=== PATIENT | male | born 1940 | race Caucasian/White ===

== ENCOUNTER 2019-02-08 14:40 | Inpatient (IN) | payer MEDICARE ==
[~2019-02-08] VITALS: Ht 175.3 cm; Wt 109.2 kg
[~2019-02-08 14:40] MED LIST: ALLO300 PO; ASPI-1182 PO; BENZ-51 PO; BETA1TAB20 PO; BUME1TAB17 PO; CARV25 PO; LOSA50TA64 PO; METF-960 PO; RIVA15T PO; ROSU20TA23 PO; TERA5CAP12 PO; TURM500C9 PO; VITAD1000 PO
[2019-02-08] MEDS ORDERED: ACETAMINOPHEN 325 MG TABLET PO PRN (17:30)
[2019-02-08] MEDS ORDERED: IPRATROPIUM BROMIDE 0.5 MG/2.5 ML NEB SOLUTION NEB PRN (17:45)
[2019-02-08] MEDS ORDERED: DEXTROSE 50%-WATER 25 GM/50 ML SYRINGE IVP PRN ×2 (17:45→20:45)
[2019-02-08] MEDS ORDERED: ALBUTEROL SULFATE 2.5 MG/0.5 ML NEB SOLUTION NEB PRN (17:45)
[2019-02-08 17:48] VITALS: BP 148/76
[2019-02-08] MEDS ORDERED: SODIUM CHLORIDE 0.9% 500 ML IV ONE (18:48)
[2019-02-08] MEDS: MetroNIDAZOLE 500 MG/NACL 100 ML IV SCH (18:54)
[2019-02-08 20:24] VITALS: BP 144/90
[2019-02-08] MEDS ORDERED: MAGNESIUM HYDROXIDE SUSPENSION 30 ML UDCUP PO PRN (20:45)
[2019-02-08] MEDS ORDERED: BISACODYL 10 MG RECTAL RECTAL SUPPOSITORY PR PRN (20:45)
[2019-02-08] MEDS ORDERED: ONDANSETRON HCL 4 MG/2 ML VIAL IVP PRN (20:45)
[2019-02-08] MEDS ORDERED: INSULIN GLARGINE,HUM.REC.ANLOG 100 UNITS/ML SQ SCH (21:00)
[2019-02-08] MEDS ORDERED: MEGESTROL ACETATE 400 MG/10 ML SUSPENSION UDCUP PO SCH (21:00)
[2019-02-08] MEDS: INSULIN GLARGINE,HUM.REC.ANLOG 100 UNITS/ML SQ SCH (21:00)
[2019-02-08] MEDS: INSULIN LISPRO 100 UNITS/ML SQ PRN (21:29)
[2019-02-08] MEDS: TAMSULOSIN HCL 0.4 MG CAPSULE PO SCH (21:32)
[2019-02-08] MEDS: APIXABAN 5 MG TABLET PO SCH (21:32)
[2019-02-08] MEDS: CARVEDILOL 12.5 MG TABLET PO SCH (21:32)
[2019-02-08] MEDS: LACTOBACILLUS ACIDOPHILUS/BULGARICUS TABLET PO SCH (21:32)
[2019-02-08] MEDS: ATORVASTATIN CALCIUM 20 MG TABLET PO SCH (21:32)
[2019-02-08] MEDS: NYSTATIN 500,000 UNITS/5 ML SUSPENSION UDCUP PO SCH (21:32)
[2019-02-08] MEDS: CHOLECALCIFEROL (VIT D3) 1,000 UNITS TABLET PO SCH (21:33)
[2019-02-09] VITALS (7 sets, daily range): BP systolic 124–147; BP diastolic 62–82
[2019-02-09] MEDS: MetroNIDAZOLE 500 MG/NACL 100 ML IV SCH ×3 (02:05→18:30)
[2019-02-09 06:24] LABS: BASOPHILS % (AUTO) 0.7 % (0.0-2.0); EOSINOPHILS % (AUTO) 2.3 % (1.0-6.0); HEMATOCRIT 34.1 % (41-53); HEMOGLOBIN 10.8 g/dL (13.5-17.5); LYMPHOCYTES # (AUTO) 0.9 K/uL (1.0-4.8); LYMPHOCYTES % (AUTO) 14.9 % (22.0-44.0); MEAN CORPUSCULAR HEMOGLOBIN 28.4 pg (26.0-34.0); MEAN CORPUSCULAR HGB CONC 31.6 G/dL (31.0-37.0); MEAN CORPUSCULAR VOLUME 90 fL (80-100); MONOCYTES # (AUTO) 0.4 K/uL (0.1-1.0); MONOCYTES % (AUTO) 7.5 % (2.0-9.0); NEUTROPHILS # (AUTO) 4.4 K/uL (1.8-7.7); NEUTROPHILS % (AUTO) 74.6 % (40.0-70.0); PLATELET COUNT (AUTO) 151 K/uL (150-450); RED CELL DISTRIBUTION WIDTH 16.6 % (11.5-14.5)
[2019-02-09 06:56] LABS: HEMOGLOBIN A1C 4.8 % (4.5-6.2)
[2019-02-09 07:00] LABS: BILIRUBIN,TOTAL 0.3 mg/dL (0.1-1.0); CALCIUM, TOTAL 9.7 mg/dL (8.8-10.5); CREATININE 2.78 mg/dL (0.60-1.30); FREE T4 (FREE THYROXINE) 0.95 ng/dL (0.76-1.46); MAGNESIUM 2.2 mg/dL (1.80-2.40); PHOSPHORUS 5.5 mg/dL (2.5-4.9); POTASSIUM 4.5 mmol/L (3.5-5.1); THYROID STIMULATING HORMONE 2.72 uIU/mL (0.36-3.74); TOTAL PROTEIN, SERUM 4.8 g/dL (6.4-8.2)
[2019-02-09 07:03] LABS: LACTIC ACID 0.9 mmol/L (0.4-2.0)
[2019-02-09 07:21] LABS: URIC ACID 11.2 mg/dL (2.6-7.2)
[2019-02-09] MEDS ORDERED: FAMOTIDINE 20 MG TABLET PO SCH (09:00)
[2019-02-09] MEDS: CHOLECALCIFEROL (VIT D3) 1,000 UNITS TABLET PO SCH ×2 (09:03→21:21)
[2019-02-09] MEDS: APIXABAN 5 MG TABLET PO SCH ×2 (09:03→21:22)
[2019-02-09] MEDS: MULTIVITAMINS WITH MINERALS, THERAPEUTIC TABLET PO SCH (09:03)
[2019-02-09] MEDS: CARVEDILOL 12.5 MG TABLET PO SCH ×2 (09:03→21:22)
[2019-02-09] MEDS: LACTOBACILLUS ACIDOPHILUS/BULGARICUS TABLET PO SCH ×3 (09:03→21:21)
[2019-02-09] MEDS: PANTOPRAZOLE SODIUM 40 MG/VIAL IVP SCH (09:03)
[2019-02-09] MEDS: NYSTATIN 500,000 UNITS/5 ML SUSPENSION UDCUP PO SCH ×4 (09:03→21:21)
[2019-02-09] MEDS ORDERED: *CLINICAL-LEVOFLOXACIN IVPB DOSING CLINICAL ONE (09:30)
[2019-02-09] MEDS ORDERED: LEVOFLOXACIN 500 MG/D5% WATER 100 ML IV ONE (10:00)
[2019-02-09] MEDS: VANCOMYCIN HCL 125 MG/2.5 ML SOLUTION ORAL.SYG PO SCH (10:53)
[2019-02-09 11:19] LABS: GLUCOMETER DEV NAME(LOC) 5S.1; GLUCOSE,POINT OF CARE 91 MG/DL (70-110)
[2019-02-09 11:19] LABS: GLUCOMETER DEV NAME(LOC) 5N.1; GLUCOSE,POINT OF CARE 83 MG/DL (70-110)
[2019-02-09 14:49] LABS: GLUCOMETER DEV NAME(LOC) 5N.1; GLUCOSE,POINT OF CARE 128 MG/DL (70-110)
[2019-02-09] MEDS: ATORVASTATIN CALCIUM 20 MG TABLET PO SCH (21:21)
[2019-02-09] MEDS: MELATONIN 5 MG TABLET PO PRN (21:21)
[2019-02-09] MEDS: TAMSULOSIN HCL 0.4 MG CAPSULE PO SCH (21:22)
[2019-02-09] MEDS: INSULIN LISPRO 100 UNITS/ML SQ PRN (21:28)
[2019-02-09] MEDS: INSULIN GLARGINE,HUM.REC.ANLOG 100 UNITS/ML SQ SCH (21:29)
[2019-02-10] MEDS: MetroNIDAZOLE 500 MG/NACL 100 ML IV SCH ×3 (02:44→18:34)
[2019-02-10 05:22] VITALS: BP 137/65
[2019-02-10 05:54] LABS: GLUCOMETER DEV NAME(LOC) 5S.1; GLUCOSE,POINT OF CARE 88 MG/DL (70-110)
[2019-02-10 05:57] LABS: BASOPHILS % (AUTO) 0.9 % (0.0-2.0); EOSINOPHILS % (AUTO) 2.3 % (1.0-6.0); HEMATOCRIT 34.4 % (41-53); HEMOGLOBIN 10.9 g/dL (13.5-17.5); MEAN CORPUSCULAR HEMOGLOBIN 28.6 pg (26.0-34.0); MEAN CORPUSCULAR HGB CONC 31.8 G/dL (31.0-37.0); MEAN CORPUSCULAR VOLUME 90 fL (80-100); MONOCYTES # (AUTO) 0.5 K/uL (0.1-1.0); MONOCYTES % (AUTO) 8.3 % (2.0-9.0); NEUTROPHILS # (AUTO) 4.1 K/uL (1.8-7.7); NEUTROPHILS % (AUTO) 71.5 % (40.0-70.0); PLATELET COUNT (AUTO) 178 K/uL (150-450); RED BLOOD CELL COUNT(AUTO) 3.83 MIL/uL (4.50-5.90); RED CELL DISTRIBUTION WIDTH 16.6 % (11.5-14.5)
[2019-02-10 07:13] LABS: CREATININE 2.94 mg/dL (0.60-1.30); POTASSIUM 5.1 mmol/L (3.5-5.1)
[2019-02-10 07:14] LABS: ALBUMIN 1.9 g/dL (3.4-5.0); BILIRUBIN,TOTAL 0.3 mg/dL (0.1-1.0); CALCIUM, TOTAL 9.8 mg/dL (8.8-10.5); MAGNESIUM 2.1 mg/dL (1.80-2.40); PHOSPHORUS 5.5 mg/dL (2.5-4.9); TOTAL PROTEIN, SERUM 5.3 g/dL (6.4-8.2)
[2019-02-10 07:17] VITALS: BP 145/72
[2019-02-10 08:04] LABS: GLUCOMETER DEV NAME(LOC) 5N.1; GLUCOSE,POINT OF CARE 90 MG/DL (70-110)
[2019-02-10 08:04] LABS: GLUCOMETER DEV NAME(LOC) 5N.1; GLUCOSE,POINT OF CARE 141 MG/DL (70-110)
[2019-02-10] MEDS: CARVEDILOL 12.5 MG TABLET PO SCH ×2 (09:04→20:52)
[2019-02-10] MEDS: PANTOPRAZOLE SODIUM 40 MG/VIAL IVP SCH (09:04)
[2019-02-10] MEDS: MULTIVITAMINS WITH MINERALS, THERAPEUTIC TABLET PO SCH (09:04)
[2019-02-10] MEDS: APIXABAN 5 MG TABLET PO SCH ×2 (09:04→20:52)
[2019-02-10] MEDS: LACTOBACILLUS ACIDOPHILUS/BULGARICUS TABLET PO SCH ×3 (09:04→20:52)
[2019-02-10] MEDS: NYSTATIN 500,000 UNITS/5 ML SUSPENSION UDCUP PO SCH ×4 (09:04→20:53)
[2019-02-10] MEDS: CHOLECALCIFEROL (VIT D3) 1,000 UNITS TABLET PO SCH ×2 (09:04→20:52)
[2019-02-10] MEDS: DEXTROSE 5%-WATER 1,000 ML IV SCH (09:20)
[2019-02-10] MEDS ORDERED: LEVOFLOXACIN 250 MG/D5% WATER 50 ML IV SCH (10:00)
[2019-02-10 11:04] VITALS: BP 128/64
[2019-02-10 13:09] LABS: GLUCOMETER DEV NAME(LOC) 5S.1; GLUCOSE,POINT OF CARE 122 MG/DL (70-110)
[2019-02-10 15:29] VITALS: BP 135/72
[2019-02-10] MEDS: AZTREONAM 1 GM in DEXTROSE 5%-WATER 50 ML IV SCH ×2 (17:17→23:07)
[2019-02-10 19:38] VITALS: BP 129/74
[2019-02-10] MEDS: TAMSULOSIN HCL 0.4 MG CAPSULE PO SCH (20:52)
[2019-02-10] MEDS: MELATONIN 5 MG TABLET PO PRN (20:52)
[2019-02-10] MEDS: INSULIN LISPRO 100 UNITS/ML SQ PRN (20:59)
[2019-02-10] MEDS: INSULIN GLARGINE,HUM.REC.ANLOG 100 UNITS/ML SQ SCH (21:00)
[2019-02-10] MEDS: ATORVASTATIN CALCIUM 20 MG TABLET PO SCH (21:02)
[2019-02-10 21:29] LABS: GLUCOMETER DEV NAME(LOC) 5S.1; GLUCOSE,POINT OF CARE 94 MG/DL (70-110)
[2019-02-10 21:29] LABS: GLUCOMETER DEV NAME(LOC) 5N.1; GLUCOSE,POINT OF CARE 142 MG/DL (70-110)
[2019-02-11] VITALS (7 sets, daily range): BP systolic 133–162; BP diastolic 59–91
[2019-02-11] MEDS: MetroNIDAZOLE 500 MG/NACL 100 ML IV SCH ×3 (01:12→19:06)
[2019-02-11] MEDS: DEXTROSE 5%-WATER 1,000 ML IV SCH (04:14)
[2019-02-11 06:03] LABS: BASOPHILS % (AUTO) 0.7 % (0.0-2.0); EOSINOPHILS % (AUTO) 2.3 % (1.0-6.0); HEMATOCRIT 34.6 % (41-53); LYMPHOCYTES # (AUTO) 1.1 K/uL (1.0-4.8); LYMPHOCYTES % (AUTO) 16.5 % (22.0-44.0); MEAN CORPUSCULAR HEMOGLOBIN 28.2 pg (26.0-34.0); MEAN CORPUSCULAR HGB CONC 31.8 G/dL (31.0-37.0); MEAN CORPUSCULAR VOLUME 89 fL (80-100); MONOCYTES # (AUTO) 0.5 K/uL (0.1-1.0); MONOCYTES % (AUTO) 7.2 % (2.0-9.0); NEUTROPHILS # (AUTO) 4.7 K/uL (1.8-7.7); NEUTROPHILS % (AUTO) 73.3 % (40.0-70.0); PLATELET COUNT (AUTO) 176 K/uL (150-450); RED CELL DISTRIBUTION WIDTH 16.4 % (11.5-14.5)
[2019-02-11 06:24] LABS: ALBUMIN 1.9 g/dL (3.4-5.0); BILIRUBIN,TOTAL 0.3 mg/dL (0.1-1.0); CALCIUM, TOTAL 9.4 mg/dL (8.8-10.5); CREATININE 2.72 mg/dL (0.60-1.30); PHOSPHORUS 5.6 mg/dL (2.5-4.9); POTASSIUM 4.2 mmol/L (3.5-5.1); TOTAL PROTEIN, SERUM 5.3 g/dL (6.4-8.2)
[2019-02-11] MEDS: AZTREONAM 1 GM in DEXTROSE 5%-WATER 50 ML IV SCH ×3 (06:26→23:06)
[2019-02-11] MEDS: CHOLECALCIFEROL (VIT D3) 1,000 UNITS TABLET PO SCH ×2 (08:57→20:33)
[2019-02-11] MEDS: NYSTATIN 500,000 UNITS/5 ML SUSPENSION UDCUP PO SCH ×4 (08:57→20:33)
[2019-02-11] MEDS: APIXABAN 5 MG TABLET PO SCH ×2 (08:57→20:33)
[2019-02-11] MEDS: CARVEDILOL 12.5 MG TABLET PO SCH ×2 (08:57→20:33)
[2019-02-11] MEDS: LACTOBACILLUS ACIDOPHILUS/BULGARICUS TABLET PO SCH ×3 (08:57→20:33)
[2019-02-11] MEDS: MULTIVITAMINS WITH MINERALS, THERAPEUTIC TABLET PO SCH (08:57)
[2019-02-11] MEDS: PANTOPRAZOLE SODIUM 40 MG/VIAL IVP SCH (08:57)
[2019-02-11] MEDS: VANCOMYCIN HCL 125 MG/2.5 ML SOLUTION ORAL.SYG PO SCH (09:23)
[2019-02-11 10:55] LABS: GLUCOMETER DEV NAME(LOC) 5N.1; GLUCOSE,POINT OF CARE 91 MG/DL (70-110)
[2019-02-11] MEDS ORDERED: BUMETANIDE 0.25 MG/ML 4 ML VIAL IVP ONE (11:15)
[2019-02-11 12:34] LABS: GLUCOMETER DEV NAME(LOC) 5N.1; GLUCOSE,POINT OF CARE 120 MG/DL (70-110)
[2019-02-11] MEDS: ATORVASTATIN CALCIUM 20 MG TABLET PO SCH (20:33)
[2019-02-11] MEDS: MELATONIN 5 MG TABLET PO PRN (20:33)
[2019-02-11] MEDS: INSULIN GLARGINE,HUM.REC.ANLOG 100 UNITS/ML SQ SCH (20:34)
[2019-02-11] MEDS: TAMSULOSIN HCL 0.4 MG CAPSULE PO SCH (20:34)
[2019-02-12] MEDS: DEXTROSE 5%-WATER 1,000 ML IV SCH (00:52)
[2019-02-12] MEDS: MetroNIDAZOLE 500 MG/NACL 100 ML IV SCH ×3 (01:46→17:41)
[2019-02-12 02:19] LABS: GLUCOMETER DEV NAME(LOC) 5N.1; GLUCOSE,POINT OF CARE 110 MG/DL (70-110)
[2019-02-12 02:19] LABS: GLUCOMETER DEV NAME(LOC) 5N.1; GLUCOSE,POINT OF CARE 104 MG/DL (70-110)
[2019-02-12 05:14] VITALS: BP 155/78
[2019-02-12] MEDS: AZTREONAM 1 GM in DEXTROSE 5%-WATER 50 ML IV SCH ×3 (06:37→22:48)
[2019-02-12 07:37] VITALS: BP 134/70
[2019-02-12] MEDS: CHOLECALCIFEROL (VIT D3) 1,000 UNITS TABLET PO SCH ×2 (08:08→20:23)
[2019-02-12] MEDS: PANTOPRAZOLE SODIUM 40 MG/VIAL IVP SCH (08:09)
[2019-02-12] MEDS: CARVEDILOL 12.5 MG TABLET PO SCH ×2 (08:09→20:23)
[2019-02-12] MEDS: APIXABAN 5 MG TABLET PO SCH ×2 (08:09→20:23)
[2019-02-12] MEDS: NYSTATIN 500,000 UNITS/5 ML SUSPENSION UDCUP PO SCH ×4 (08:09→20:22)
[2019-02-12] MEDS: LACTOBACILLUS ACIDOPHILUS/BULGARICUS TABLET PO SCH ×3 (08:09→20:23)
[2019-02-12] MEDS: MULTIVITAMINS WITH MINERALS, THERAPEUTIC TABLET PO SCH (08:09)
[2019-02-12 08:44] LABS: GLUCOMETER DEV NAME(LOC) 5N.1; GLUCOSE,POINT OF CARE 85 MG/DL (70-110)
[2019-02-12 10:27] LABS: CALCIUM, TOTAL 9.6 mg/dL (8.8-10.5); CREATININE 3.06 mg/dL (0.60-1.30); MAGNESIUM 1.9 mg/dL (1.80-2.40); PHOSPHORUS 5.9 mg/dL (2.5-4.9); POTASSIUM 4.4 mmol/L (3.5-5.1)
[2019-02-12] MEDS ORDERED: DEXTROSE 5%-WATER 1,000 ML IV SCH (11:00)
[2019-02-12 11:18] VITALS: BP 119/60
[2019-02-12 16:09] VITALS: BP 101/64
[2019-02-12] MEDS: IPRATROPIUM BROMIDE 0.5 MG/2.5 ML NEB SOLUTION NEB PRN (16:39)
[2019-02-12] MEDS: ALBUTEROL SULFATE 2.5 MG/0.5 ML NEB SOLUTION NEB PRN (16:39)
[2019-02-12] MEDS: INSULIN LISPRO 100 UNITS/ML SQ PRN (17:52)
[2019-02-12 18:14] LABS: GLUCOMETER DEV NAME(LOC) 5N.1; GLUCOSE,POINT OF CARE 111 MG/DL (70-110)
[2019-02-12 18:14] LABS: GLUCOMETER DEV NAME(LOC) 5N.1; GLUCOSE,POINT OF CARE 161 MG/DL (70-110)
[2019-02-12 19:28] VITALS: BP 132/63
[2019-02-12] MEDS: MELATONIN 5 MG TABLET PO PRN (20:23)
[2019-02-12] MEDS: ATORVASTATIN CALCIUM 20 MG TABLET PO SCH (20:23)
[2019-02-12] MEDS: TAMSULOSIN HCL 0.4 MG CAPSULE PO SCH (20:23)
[2019-02-12] MEDS: INSULIN GLARGINE,HUM.REC.ANLOG 100 UNITS/ML SQ SCH (20:23)
[2019-02-12 21:29] LABS: GLUCOMETER DEV NAME(LOC) 5N.1; GLUCOSE,POINT OF CARE 139 MG/DL (70-110)
[2019-02-13] VITALS: BP 148/80
[2019-02-13 00:19] VITALS: BP 94/61
[2019-02-13] MEDS: MetroNIDAZOLE 500 MG/NACL 100 ML IV SCH ×3 (01:48→18:10)
[2019-02-13 04:42] VITALS: BP 141/89
[2019-02-13] MEDS: AZTREONAM 1 GM in DEXTROSE 5%-WATER 50 ML IV SCH ×3 (06:20→22:34)
[2019-02-13 06:55] LABS: BASOPHILS % (AUTO) 0.4 % (0.0-2.0); EOSINOPHILS % (AUTO) 1.6 % (1.0-6.0); HEMATOCRIT 33.9 % (41-53); HEMOGLOBIN 10.7 g/dL (13.5-17.5); LYMPHOCYTES # (AUTO) 1.2 K/uL (1.0-4.8); LYMPHOCYTES % (AUTO) 13.5 % (22.0-44.0); MEAN CORPUSCULAR HEMOGLOBIN 28.5 pg (26.0-34.0); MEAN CORPUSCULAR HGB CONC 31.7 G/dL (31.0-37.0); MEAN CORPUSCULAR VOLUME 90 fL (80-100); MONOCYTES # (AUTO) 0.4 K/uL (0.1-1.0); NEUTROPHILS # (AUTO) 7.1 K/uL (1.8-7.7); NEUTROPHILS % (AUTO) 79.5 % (40.0-70.0); PLATELET COUNT (AUTO) 197 K/uL (150-450); RED BLOOD CELL COUNT(AUTO) 3.76 MIL/uL (4.50-5.90); RED CELL DISTRIBUTION WIDTH 16.9 % (11.5-14.5)
[2019-02-13 07:28] LABS: CALCIUM, TOTAL 9.4 mg/dL (8.8-10.5); CREATININE 3.35 mg/dL (0.60-1.30); PHOSPHORUS 4.8 mg/dL (2.5-4.9); POTASSIUM 4.2 mmol/L (3.5-5.1)
[2019-02-13 07:39] LABS: GLUCOMETER DEV NAME(LOC) 5S.1; GLUCOSE,POINT OF CARE 89 MG/DL (70-110)
[2019-02-13 07:48] VITALS: BP 137/68
[2019-02-13] MEDS: SODIUM CHLORIDE 0.45% 1,000 ML IV SCH (09:03)
[2019-02-13] MEDS: CHOLECALCIFEROL (VIT D3) 1,000 UNITS TABLET PO SCH ×2 (09:04→21:44)
[2019-02-13] MEDS: CARVEDILOL 12.5 MG TABLET PO SCH ×2 (09:04→21:45)
[2019-02-13] MEDS: APIXABAN 5 MG TABLET PO SCH (09:04)
[2019-02-13] MEDS: LACTOBACILLUS ACIDOPHILUS/BULGARICUS TABLET PO SCH ×3 (09:04→21:47)
[2019-02-13] MEDS: NYSTATIN 500,000 UNITS/5 ML SUSPENSION UDCUP PO SCH ×4 (09:04→21:44)
[2019-02-13] MEDS: PANTOPRAZOLE SODIUM 40 MG/VIAL IVP SCH (09:04)
[2019-02-13] MEDS: MULTIVITAMINS WITH MINERALS, THERAPEUTIC TABLET PO SCH (09:04)
[2019-02-13] MEDS: VANCOMYCIN HCL 125 MG/2.5 ML SOLUTION ORAL.SYG PO SCH ×3 (09:05→23:33)
[2019-02-13 13:09] LABS: GLUCOMETER DEV NAME(LOC) 5N.1; GLUCOSE,POINT OF CARE 114 MG/DL (70-110)
[2019-02-13 16:44] VITALS: BP 131/61
[2019-02-13 17:44] LABS: CREATININE 3.64 mg/dL (0.60-1.30)
[2019-02-13 20:10] VITALS: BP 146/70
[2019-02-13] MEDS ORDERED: APIXABAN 5 MG TABLET PO SCH (21:00)
[2019-02-13] MEDS: APIXABAN 2.5 MG TABLET PO SCH (21:44)
[2019-02-13] MEDS: TAMSULOSIN HCL 0.4 MG CAPSULE PO SCH (21:45)
[2019-02-13] MEDS: ATORVASTATIN CALCIUM 20 MG TABLET PO SCH (21:45)
[2019-02-13 23:53] LABS: GLUCOMETER DEV NAME(LOC) 5S.1; GLUCOSE,POINT OF CARE 140 MG/DL (70-110)
[2019-02-13 23:54] LABS: GLUCOMETER DEV NAME(LOC) 5S.1; GLUCOSE,POINT OF CARE 118 MG/DL (70-110)
[2019-02-14] MEDS: MetroNIDAZOLE 500 MG/NACL 100 ML IV SCH ×3 (02:50→18:21)
[2019-02-14 04:35] VITALS: BP 143/70
[2019-02-14 06:34] LABS: GLUCOMETER DEV NAME(LOC) 5N.1; GLUCOSE,POINT OF CARE 86 MG/DL (70-110)
[2019-02-14 06:42] LABS: CALCIUM, TOTAL 9.6 mg/dL (8.8-10.5); CREATININE 3.64 mg/dL (0.60-1.30); PHOSPHORUS 4.8 mg/dL (2.5-4.9); POTASSIUM 4.3 mmol/L (3.5-5.1)
[2019-02-14] MEDS: VANCOMYCIN HCL 125 MG/2.5 ML SOLUTION ORAL.SYG PO SCH ×3 (07:07→18:21)
[2019-02-14] MEDS: AZTREONAM 1 GM in DEXTROSE 5%-WATER 50 ML IV SCH ×3 (07:09→23:54)
[2019-02-14 07:39] VITALS: BP 128/75
[2019-02-14] MEDS: PANTOPRAZOLE SODIUM 40 MG/VIAL IVP SCH (09:00)
[2019-02-14] MEDS: SODIUM CHLORIDE 0.45% 1,000 ML IV SCH ×2 (10:49→23:54)
[2019-02-14] MEDS: CARVEDILOL 12.5 MG TABLET PO SCH ×2 (10:49→20:17)
[2019-02-14] MEDS: NYSTATIN 500,000 UNITS/5 ML SUSPENSION UDCUP PO SCH ×4 (10:50→20:17)
[2019-02-14] MEDS: APIXABAN 2.5 MG TABLET PO SCH ×2 (10:50→20:17)
[2019-02-14] MEDS: LACTOBACILLUS ACIDOPHILUS/BULGARICUS TABLET PO SCH ×3 (10:50→20:17)
[2019-02-14] MEDS: MULTIVITAMINS WITH MINERALS, THERAPEUTIC TABLET PO SCH (10:50)
[2019-02-14] MEDS: CHOLECALCIFEROL (VIT D3) 1,000 UNITS TABLET PO SCH ×2 (10:51→20:17)
[2019-02-14 11:59] VITALS: BP 120/60
[2019-02-14 15:34] LABS: GLUCOMETER DEV NAME(LOC) 5S.1; GLUCOSE,POINT OF CARE 134 MG/DL (70-110)
[2019-02-14 15:48] VITALS: BP 122/67
[2019-02-14 17:50] LABS: CREATININE 3.71 mg/dL (0.60-1.30)
[2019-02-14 20:15] VITALS: BP 136/56
[2019-02-14] MEDS: TAMSULOSIN HCL 0.4 MG CAPSULE PO SCH (20:17)
[2019-02-14] MEDS: ATORVASTATIN CALCIUM 20 MG TABLET PO SCH (20:17)
[2019-02-14 23:46] VITALS: BP 126/71
[2019-02-15] MEDS: VANCOMYCIN HCL 125 MG/2.5 ML SOLUTION ORAL.SYG PO SCH ×4 (00:05→17:18)
[2019-02-15] MEDS: MetroNIDAZOLE 500 MG/NACL 100 ML IV SCH ×3 (02:04→17:17)
[2019-02-15 04:36] VITALS: BP 145/81
[2019-02-15 05:10] LABS: GLUCOMETER DEV NAME(LOC) 5N.1; GLUCOSE,POINT OF CARE 112 MG/DL (70-110)
[2019-02-15 05:10] LABS: GLUCOMETER DEV NAME(LOC) 5N.1; GLUCOSE,POINT OF CARE 108 MG/DL (70-110)
[2019-02-15] MEDS: AZTREONAM 1 GM in DEXTROSE 5%-WATER 50 ML IV SCH ×2 (06:03→14:17)
[2019-02-15 06:10] LABS: BASOPHILS % (AUTO) 0.4 % (0.0-2.0); HEMATOCRIT 35.9 % (41-53); HEMOGLOBIN 11.3 g/dL (13.5-17.5); LYMPHOCYTES # (AUTO) 1.3 K/uL (1.0-4.8); LYMPHOCYTES % (AUTO) 11.7 % (22.0-44.0); MEAN CORPUSCULAR HEMOGLOBIN 28.1 pg (26.0-34.0); MEAN CORPUSCULAR HGB CONC 31.6 G/dL (31.0-37.0); MEAN CORPUSCULAR VOLUME 89 fL (80-100); MONOCYTES # (AUTO) 0.5 K/uL (0.1-1.0); MONOCYTES % (AUTO) 4.3 % (2.0-9.0); NEUTROPHILS # (AUTO) 9.4 K/uL (1.8-7.7); NEUTROPHILS % (AUTO) 82.6 % (40.0-70.0); PLATELET COUNT (AUTO) 210 K/uL (150-450); RED BLOOD CELL COUNT(AUTO) 4.03 MIL/uL (4.50-5.90); RED CELL DISTRIBUTION WIDTH 16.6 % (11.5-14.5)
[2019-02-15 06:30] LABS: GLUCOMETER DEV NAME(LOC) 5S.1; GLUCOSE,POINT OF CARE 88 MG/DL (70-110)
[2019-02-15 07:05] LABS: ALBUMIN 1.8 g/dL (3.4-5.0); BILIRUBIN,TOTAL 0.3 mg/dL (0.1-1.0); CALCIUM, TOTAL 9.7 mg/dL (8.8-10.5); CREATININE 3.8 mg/dL (0.60-1.30); MAGNESIUM 2.1 mg/dL (1.80-2.40); PHOSPHORUS 5.6 mg/dL (2.5-4.9); POTASSIUM 4.5 mmol/L (3.5-5.1); TOTAL PROTEIN, SERUM 5.4 g/dL (6.4-8.2)
[2019-02-15 07:26] VITALS: BP 129/67
[2019-02-15] MEDS: PANTOPRAZOLE SODIUM 40 MG/VIAL IVP SCH (09:14)
[2019-02-15] MEDS: LACTOBACILLUS ACIDOPHILUS/BULGARICUS TABLET PO SCH ×3 (09:14→20:28)
[2019-02-15] MEDS: MULTIVITAMINS WITH MINERALS, THERAPEUTIC TABLET PO SCH (09:14)
[2019-02-15] MEDS: CARVEDILOL 12.5 MG TABLET PO SCH ×2 (09:14→20:28)
[2019-02-15] MEDS: CHOLECALCIFEROL (VIT D3) 1,000 UNITS TABLET PO SCH ×2 (09:14→20:28)
[2019-02-15] MEDS: APIXABAN 2.5 MG TABLET PO SCH ×2 (09:14→20:28)
[2019-02-15] MEDS: NYSTATIN 500,000 UNITS/5 ML SUSPENSION UDCUP PO SCH ×4 (09:15→20:28)
[2019-02-15 11:25] VITALS: BP 114/58
[2019-02-15 12:20] LABS: GLUCOMETER DEV NAME(LOC) 5N.2; GLUCOSE,POINT OF CARE 109 MG/DL (70-110)
[2019-02-15] MEDS: ALBUTEROL SULFATE 2.5 MG/0.5 ML NEB SOLUTION NEB PRN (12:25)
[2019-02-15] MEDS: IPRATROPIUM BROMIDE 0.5 MG/2.5 ML NEB SOLUTION NEB PRN (12:25)
[2019-02-15 15:14] VITALS: BP 127/66
[2019-02-15 18:15] LABS: CREATININE 4.12 mg/dL (0.60-1.30)
[2019-02-15 19:06] LABS: GLUCOMETER DEV NAME(LOC) 5N.2; GLUCOSE,POINT OF CARE 101 MG/DL (70-110)
[2019-02-15] MEDS: ATORVASTATIN CALCIUM 20 MG TABLET PO SCH (20:27)
[2019-02-15] MEDS: TAMSULOSIN HCL 0.4 MG CAPSULE PO SCH (20:28)
[2019-02-15 20:34] VITALS: BP 130/69
[2019-02-16] MEDS: AZTREONAM 1 GM in DEXTROSE 5%-WATER 50 ML IV SCH ×4 (00:01→22:19)
[2019-02-16 00:15] VITALS: BP 99/47
[2019-02-16 00:41] LABS: GLUCOMETER DEV NAME(LOC) 5N.1; GLUCOSE,POINT OF CARE 123 MG/DL (70-110)
[2019-02-16] MEDS: MetroNIDAZOLE 500 MG/NACL 100 ML IV SCH ×3 (02:36→18:35)
[2019-02-16 05:09] VITALS: BP 126/76
[2019-02-16] MEDS ORDERED: SODIUM CHLORIDE 0.9% 100 ML ONE (05:27)
[2019-02-16] MEDS: VANCOMYCIN HCL 125 MG/2.5 ML SOLUTION ORAL.SYG PO SCH ×5 (06:08→23:18)
[2019-02-16 06:35] LABS: CALCIUM, TOTAL 9.9 mg/dL (8.8-10.5); CREATININE 4.32 mg/dL (0.60-1.30); MAGNESIUM 2.1 mg/dL (1.80-2.40); PHOSPHORUS 6.1 mg/dL (2.5-4.9); POTASSIUM 4.6 mmol/L (3.5-5.1)
[2019-02-16 07:20] LABS: GLUCOMETER DEV NAME(LOC) 5N.1; GLUCOSE,POINT OF CARE 83 MG/DL (70-110)
[2019-02-16 08:38] VITALS: BP 136/72
[2019-02-16] MEDS ORDERED: HEPARIN SODIUM,PORCINE 1,000 UNITS/ML 10 ML VIAL ONE (08:42)
[2019-02-16] MEDS ORDERED: LIDOCAINE 1%/EPI 1:200,000/PF 10 ML VIAL ONE (08:42)
[2019-02-16] MEDS ORDERED: HEPARIN SODIUM 1000 UNITS/NS 500 ML ONE (08:43)
[2019-02-16] MEDS: APIXABAN 2.5 MG TABLET PO SCH ×2 (09:04→23:05)
[2019-02-16] MEDS: NYSTATIN 500,000 UNITS/5 ML SUSPENSION UDCUP PO SCH ×4 (09:05→23:05)
[2019-02-16] MEDS: CHOLECALCIFEROL (VIT D3) 1,000 UNITS TABLET PO SCH ×2 (09:05→21:49)
[2019-02-16] MEDS: LACTOBACILLUS ACIDOPHILUS/BULGARICUS TABLET PO SCH ×3 (09:07→23:06)
[2019-02-16] MEDS: MULTIVITAMINS WITH MINERALS, THERAPEUTIC TABLET PO SCH (09:07)
[2019-02-16] MEDS: CARVEDILOL 12.5 MG TABLET PO SCH ×2 (09:08→21:50)
[2019-02-16] MEDS: PANTOPRAZOLE SODIUM 40 MG/VIAL IVP SCH (10:00)
[2019-02-16 10:12] LABS: INR 1.2 (0.9-1.1)
[2019-02-16] MEDS ORDERED: FentaNYL CITRATE-PF 100 MCG/2 ML VIAL ONE (12:36)
[2019-02-16] MEDS ORDERED: MIDAZOLAM HCL 2 MG/2 ML VIAL ONE (12:37)
[2019-02-16] MEDS ORDERED: FentaNYL CITRATE-PF 100 MCG/2 ML VIAL IVP ONE (12:43)
[2019-02-16] MEDS ORDERED: MIDAZOLAM HCL 2 MG/2 ML VIAL IVP ONE (12:43)
[2019-02-16 13:04] VITALS: BP 134/69
[2019-02-16 16:26] VITALS: BP 137/83
[2019-02-16 17:20] LABS: GLUCOSE,POINT OF CARE 95 MG/DL (70-110)
[2019-02-16 17:20] LABS: GLUCOMETER DEV NAME(LOC) 5S.1; GLUCOSE,POINT OF CARE 107 MG/DL (70-110)
[2019-02-16 19:49] LABS: ABG METHEMOGLOBIN 0.3 % (0.0-1.5); SOURCE, BLOOD GAS ARTERIAL
[2019-02-16 20:00] VITALS: BP 130/82
[2019-02-16 20:00] LABS: ABG A-A DIFF O2 149.1 mmHg (10-20.0); ABG BASE EXCESS 2.4 mmol/L (-2.0-3.0); ABG CARBOXYHEMOGLOBIN 0.4 % (0.0-1.5); ABG HCO3 25.9 mmol/L (22.0-26.0); ABG OXYGEN CONTENT 16.1 mL/dL (15.0-23.0); ABG OXYGEN SATURATION 95.6 % (95.0-98.0); ABG OXYHEMOGLOBIN 94.9 % (94.0-100.0); ABG PCO2 51 mmHg (35-45); ABG PH 7.356 (7.35-7.450); PO2, ARTERIAL BG 77.8 mmHg (75.0-83.0)
[2019-02-16 20:01] LABS: O2 DEVICE,BLOOD GAS BIPAP (ROOM AIR); SITE, BLOOD GAS RT RADIAL; SPONTANEOUS VT, BG 459 ml
[2019-02-16 21:40] LABS: GLUCOSE,POINT OF CARE 87 MG/DL (70-110)
[2019-02-16] MEDS: TAMSULOSIN HCL 0.4 MG CAPSULE PO SCH (21:49)
[2019-02-16] MEDS: ATORVASTATIN CALCIUM 20 MG TABLET PO SCH (21:50)
[2019-02-17] VITALS (8 sets, daily range): BP systolic 103–140; BP diastolic 49–77
[2019-02-17] MEDS: MetroNIDAZOLE 500 MG/NACL 100 ML IV SCH ×3 (01:33→16:57)
[2019-02-17 04:56] LABS: BASOPHILS % (AUTO) 0.7 % (0.0-2.0); EOSINOPHILS % (AUTO) 1.1 % (1.0-6.0); HEMATOCRIT 33.5 % (41-53); HEMOGLOBIN 10.7 g/dL (13.5-17.5); LYMPHOCYTES # (AUTO) 0.9 K/uL (1.0-4.8); LYMPHOCYTES % (AUTO) 10.2 % (22.0-44.0); MEAN CORPUSCULAR HEMOGLOBIN 28.7 pg (26.0-34.0); MEAN CORPUSCULAR HGB CONC 32.1 G/dL (31.0-37.0); MEAN CORPUSCULAR VOLUME 89 fL (80-100); MONOCYTES # (AUTO) 0.5 K/uL (0.1-1.0); MONOCYTES % (AUTO) 5.7 % (2.0-9.0); NEUTROPHILS # (AUTO) 7.5 K/uL (1.8-7.7); NEUTROPHILS % (AUTO) 82.3 % (40.0-70.0); PLATELET COUNT (AUTO) 227 K/uL (150-450); RED BLOOD CELL COUNT(AUTO) 3.75 MIL/uL (4.50-5.90); RED CELL DISTRIBUTION WIDTH 16.6 % (11.5-14.5)
[2019-02-17 05:31] LABS: ALBUMIN 1.7 g/dL (3.4-5.0); BILIRUBIN,TOTAL 0.3 mg/dL (0.1-1.0); CALCIUM, TOTAL 9.4 mg/dL (8.8-10.5); CREATININE 3.98 mg/dL (0.60-1.30); MAGNESIUM 1.9 mg/dL (1.80-2.40); PHOSPHORUS 5.6 mg/dL (2.5-4.9); POTASSIUM 5.1 mmol/L (3.5-5.1); TOTAL PROTEIN, SERUM 5.3 g/dL (6.4-8.2)
[2019-02-17] MEDS: VANCOMYCIN HCL 125 MG/2.5 ML SOLUTION ORAL.SYG PO SCH ×4 (05:33→23:09)
[2019-02-17] MEDS: INSULIN LISPRO 100 UNITS/ML SQ PRN (05:34)
[2019-02-17] MEDS: AZTREONAM 1 GM in DEXTROSE 5%-WATER 50 ML IV SCH ×2 (06:22→15:03)
[2019-02-17] MEDS ORDERED: SODIUM CHLORIDE 0.9% 100 ML ONE (06:37)
[2019-02-17 06:39] LABS: GLUCOSE,POINT OF CARE 99 MG/DL (70-110)
[2019-02-17] MEDS: MULTIVITAMINS WITH MINERALS, THERAPEUTIC TABLET PO SCH (08:37)
[2019-02-17] MEDS: NYSTATIN 500,000 UNITS/5 ML SUSPENSION UDCUP PO SCH ×4 (08:37→21:48)
[2019-02-17] MEDS: PANTOPRAZOLE SODIUM 40 MG/VIAL IVP SCH (08:37)
[2019-02-17] MEDS: APIXABAN 2.5 MG TABLET PO SCH ×2 (08:38→21:46)
[2019-02-17] MEDS: LACTOBACILLUS ACIDOPHILUS/BULGARICUS TABLET PO SCH ×3 (08:38→21:48)
[2019-02-17] MEDS: CHOLECALCIFEROL (VIT D3) 1,000 UNITS TABLET PO SCH ×2 (08:38→21:46)
[2019-02-17] MEDS: CARVEDILOL 12.5 MG TABLET PO SCH ×2 (08:38→21:46)
[2019-02-17] MEDS ORDERED: HEPARIN SODIUM,PORCINE 1,000 UNITS/ML VIAL IVP ONE (16:56)
[2019-02-17 20:04] LABS: GLUCOSE,POINT OF CARE 127 MG/DL (70-110)
[2019-02-17 20:04] LABS: GLUCOSE,POINT OF CARE 116 MG/DL (70-110)
[2019-02-17] MEDS: FUROSEMIDE 40 MG/4 ML VIAL IVP SCH (21:46)
[2019-02-17] MEDS: ATORVASTATIN CALCIUM 20 MG TABLET PO SCH (21:46)
[2019-02-17] MEDS: TAMSULOSIN HCL 0.4 MG CAPSULE PO SCH (21:46)
[2019-02-18 00:25] VITALS: BP 112/62
[2019-02-18 04:25] VITALS: BP 114/69
[2019-02-18] MEDS: VANCOMYCIN HCL 125 MG/2.5 ML SOLUTION ORAL.SYG PO SCH ×3 (05:12→18:00)
[2019-02-18 05:45] LABS: GLUCOMETER DEV NAME(LOC) 5N.1; GLUCOSE,POINT OF CARE 127 MG/DL (70-110)
[2019-02-18 06:23] LABS: BASOPHILS % (AUTO) 0.6 % (0.0-2.0); HEMOGLOBIN 10.1 g/dL (13.5-17.5); LYMPHOCYTES % (AUTO) 11.8 % (22.0-44.0); MEAN CORPUSCULAR HEMOGLOBIN 28.7 pg (26.0-34.0); MEAN CORPUSCULAR HGB CONC 31.7 G/dL (31.0-37.0); MEAN CORPUSCULAR VOLUME 91 fL (80-100); MONOCYTES # (AUTO) 0.6 K/uL (0.1-1.0); MONOCYTES % (AUTO) 7.8 % (2.0-9.0); NEUTROPHILS # (AUTO) 6.4 K/uL (1.8-7.7); NEUTROPHILS % (AUTO) 78.8 % (40.0-70.0); PLATELET COUNT (AUTO) 202 K/uL (150-450); RED BLOOD CELL COUNT(AUTO) 3.53 MIL/uL (4.50-5.90); RED CELL DISTRIBUTION WIDTH 16.8 % (11.5-14.5)
[2019-02-18 06:54] LABS: ALBUMIN 1.7 g/dL (3.4-5.0); BILIRUBIN,TOTAL 0.3 mg/dL (0.1-1.0); CALCIUM, TOTAL 9.6 mg/dL (8.8-10.5); CREATININE 4.72 mg/dL (0.60-1.30); MAGNESIUM 2.1 mg/dL (1.80-2.40); PHOSPHORUS 6.6 mg/dL (2.5-4.9); POTASSIUM 4.3 mmol/L (3.5-5.1); TOTAL PROTEIN, SERUM 5.1 g/dL (6.4-8.2)
[2019-02-18] MEDS: PANTOPRAZOLE SODIUM 40 MG/VIAL IVP SCH (08:08)
[2019-02-18] MEDS: LACTOBACILLUS ACIDOPHILUS/BULGARICUS TABLET PO SCH ×3 (08:08→21:00)
[2019-02-18] MEDS: MULTIVITAMINS WITH MINERALS, THERAPEUTIC TABLET PO SCH (08:09)
[2019-02-18] MEDS: APIXABAN 2.5 MG TABLET PO SCH ×2 (08:09→21:00)
[2019-02-18] MEDS: CHOLECALCIFEROL (VIT D3) 1,000 UNITS TABLET PO SCH ×2 (08:09→21:00)
[2019-02-18] MEDS: NYSTATIN 500,000 UNITS/5 ML SUSPENSION UDCUP PO SCH ×4 (08:09→21:00)
[2019-02-18] MEDS: CARVEDILOL 12.5 MG TABLET PO SCH ×2 (08:18→21:00)
[2019-02-18] MEDS: FUROSEMIDE 40 MG/4 ML VIAL IVP SCH ×2 (08:18→21:00)
[2019-02-18 10:08] VITALS: BP 131/75
[2019-02-18 16:24] VITALS: BP 128/71
[2019-02-18] MEDS ORDERED: HEPARIN SODIUM,PORCINE 1,000 UNITS/ML VIAL IVP ONE ×3 (18:00→22:02)
[2019-02-18] MEDS ORDERED: NOREPINEPHRINE 4 MG/D5%-WATER 250 ML IV ONE (18:53)
[2019-02-18] MEDS ORDERED: ALBUMIN HUMAN 5%-12.5GM/250ML 250 ML IV ONE (18:56)
[2019-02-18] MEDS ORDERED: ALBUMIN HUMAN 25%-12.5GM/50ML 100 ML ONE (18:58)
[2019-02-18] MEDS ORDERED: SODIUM CHLORIDE 0.9% 500 ML IV ONE (18:59)
[2019-02-18] MEDS: NOREPINEPHRINE 4 MG/D5%-WATER 250 ML IV PRN (19:00)
[2019-02-18] MEDS ORDERED: ALBUMIN HUMAN 25%-25GM/100ML 100 ML IV ONE (19:00)
[2019-02-18] MEDS ORDERED: DOPamine HCL 400 MG/D5%-WATER 250 ML IV PRN (19:02)
[2019-02-18 19:22] LABS: ABG A-A DIFF O2 599.8 mmHg (10-20.0); ABG BASE EXCESS -4.7 mmol/L (-2.0-3.0); ABG CARBOXYHEMOGLOBIN 0.4 % (0.0-1.5); ABG HCO3 19.7 mmol/L (22.0-26.0); ABG METHEMOGLOBIN 0.3 % (0.0-1.5); ABG OXYGEN CONTENT 14.1 mL/dL (15.0-23.0); ABG OXYHEMOGLOBIN 81.3 % (94.0-100.0); ABG PCO2 64 mmHg (35-45); ABG TOTAL HEMOGLOBIN 12.3 G/dL (12.0-18.0); PO2, ARTERIAL BG 49.5 mmHg (75.0-83.0); SOURCE, BLOOD GAS ARTERIAL; TEMPERATURE, FAHRENHEIT, BG 98.6 FAHREN (96.0-98.6)
[2019-02-18 19:23] LABS: ABG OXYGEN SATURATION 81.9 % (95.0-98.0); ABG PH 7.186 (7.35-7.450); O2 DEVICE,BLOOD GAS VENTILATOR (ROOM AIR); SITE, BLOOD GAS RT RADIAL
[2019-02-18 19:24] LABS: PEEP,BG 7 cm H2O; VT, ABG 600 ml
[2019-02-18 19:39] LABS: GLUCOMETER DEV NAME(LOC) 5N.2; GLUCOSE,POINT OF CARE 104 MG/DL (70-110)
[2019-02-18 20:00] VITALS: BP 99/68
[2019-02-18] MEDS ORDERED: PHENYLEPHRINE HCL 400 MG in DEXTROSE 5%-WATER 210 ML IV PRN (20:00)
[2019-02-18] MEDS ORDERED: VASOPRESSIN 40 UNITS in DEXTROSE 5%-WATER 98 ML IV PRN (20:00)
[2019-02-18 20:42] LABS: ABG A-A DIFF O2 608.5 mmHg (10-20.0); ABG BASE EXCESS -3.3 mmol/L (-2.0-3.0); ABG CARBOXYHEMOGLOBIN 0.2 % (0.0-1.5); ABG METHEMOGLOBIN 0.3 % (0.0-1.5); ABG OXYGEN CONTENT 14.9 mL/dL (15.0-23.0); ABG OXYGEN SATURATION 85.3 % (95.0-98.0); ABG OXYHEMOGLOBIN 84.9 % (94.0-100.0); ABG PCO2 55 mmHg (35-45); ABG PH 7.252 (7.35-7.450); ABG TOTAL HEMOGLOBIN 12.5 G/dL (12.0-18.0); PO2, ARTERIAL BG 50.1 mmHg (75.0-83.0); SOURCE, BLOOD GAS ARTERIAL; TEMPERATURE, FAHRENHEIT, BG 97.8 FAHREN (96.0-98.6)
[2019-02-18 20:43] LABS: SITE, BLOOD GAS ARTERIAL LINE
[2019-02-18 20:44] LABS: O2 DEVICE,BLOOD GAS VENTILATOR (ROOM AIR); PEEP,BG 10 cm H2O; VT, ABG 600 ml
[2019-02-18] MEDS: ATORVASTATIN CALCIUM 20 MG TABLET PO SCH (21:00)
[2019-02-18] MEDS: TAMSULOSIN HCL 0.4 MG CAPSULE PO SCH (21:00)
[2019-02-18 21:10] LABS: GLUCOMETER DEV NAME(LOC) 5N.1; GLUCOSE,POINT OF CARE 83 MG/DL (70-110)
[2019-02-18] MEDS ORDERED: MORPHINE SULFATE 2 MG/ML SYRINGE IVP PRN (21:15)
[2019-02-18] MEDS ORDERED: SODIUM CHLORIDE 0.9% 100 ML ONE (21:37)
[2019-02-18] MEDS ORDERED: IOVERSOL 350 MG/ML 100 ML VIAL ONE (21:37)
[2019-02-18 21:38] LABS: CREATININE 3.84 mg/dL (0.60-1.30); POTASSIUM 4.2 mmol/L (3.5-5.1)
[2019-02-18 21:39] LABS: ALBUMIN 2.4 g/dL (3.4-5.0); BILIRUBIN,TOTAL 0.4 mg/dL (0.1-1.0); MAGNESIUM 1.8 mg/dL (1.80-2.40); PHOSPHORUS 5.9 mg/dL (2.5-4.9)
[2019-02-18 22:25] LABS: ABG A-A DIFF O2 594.1 mmHg (10-20.0); ABG BASE EXCESS -4.7 mmol/L (-2.0-3.0); ABG CARBOXYHEMOGLOBIN 0.3 % (0.0-1.5); ABG HCO3 20.8 mmol/L (22.0-26.0); ABG METHEMOGLOBIN 0.3 % (0.0-1.5); ABG OXYGEN CONTENT 16.6 mL/dL (15.0-23.0); ABG OXYGEN SATURATION 95.3 % (95.0-98.0); ABG OXYHEMOGLOBIN 94.7 % (94.0-100.0); ABG PCO2 42 mmHg (35-45); ABG PH 7.325 (7.35-7.450); ABG TOTAL HEMOGLOBIN 12.4 G/dL (12.0-18.0); SITE, BLOOD GAS ARTERIAL LINE; SOURCE, BLOOD GAS ARTERIAL; TEMPERATURE, FAHRENHEIT, BG 99.3 FAHREN (96.0-98.6)
[2019-02-18 22:26] LABS: O2 DEVICE,BLOOD GAS VENTILATOR (ROOM AIR); PEEP,BG 15 cm H2O; VT, ABG 600 ml
[2019-02-18] MEDS ORDERED: SODIUM CHLORIDE 0.9% 1,000 ML IV ONE ×2 (23:26→23:27)
[2019-02-18] MEDS ORDERED: HEPARIN SODIUM,PORCINE 1,000 UNITS/ML VIAL IVP PRN ×2 (23:45)
[2019-02-18] MEDS ORDERED: POTASSIUM CHLORIDE 20 MEQ in NXSTAGE RFP-402 K0/CA3 5,000 ML IRRIG PRN (23:45)
[2019-02-19] VITALS: BP 191/84
[2019-02-19] MEDS: NOREPINEPHRINE 4 MG/D5%-WATER 250 ML IV PRN ×3 (00:58→07:57)
[2019-02-19 03:04] LABS: GLUCOSE,POINT OF CARE 128 MG/DL (70-110)
[2019-02-19 04:00] VITALS: BP 145/52
[2019-02-19 04:49] LABS: GLUCOMETER DEV NAME(LOC) 5S.1; GLUCOSE,POINT OF CARE 89 MG/DL (70-110)
[2019-02-19 04:49] LABS: GLUCOMETER DEV NAME(LOC) 5S.1; GLUCOSE,POINT OF CARE 85 MG/DL (70-110)
[2019-02-19 04:57] LABS: BASOPHILS % (AUTO) 0.1 % (0.0-2.0); EOSINOPHILS % (AUTO) 0 % (1.0-6.0); HEMATOCRIT 36.2 % (41-53); HEMOGLOBIN 11.5 g/dL (13.5-17.5); LYMPHOCYTES # (AUTO) 0.9 K/uL (1.0-4.8); LYMPHOCYTES % (AUTO) 4.4 % (22.0-44.0); MEAN CORPUSCULAR HGB CONC 31.8 G/dL (31.0-37.0); MEAN CORPUSCULAR VOLUME 88 fL (80-100); MONOCYTES # (AUTO) 1.3 K/uL (0.1-1.0); MONOCYTES % (AUTO) 5.9 % (2.0-9.0); NEUTROPHILS # (AUTO) 19.1 K/uL (1.8-7.7); PLATELET COUNT (AUTO) 218 K/uL (150-450); RED BLOOD CELL COUNT(AUTO) 4.11 MIL/uL (4.50-5.90); RED CELL DISTRIBUTION WIDTH 16.9 % (11.5-14.5)
[2019-02-19 04:59] LABS: NEUTROPHILS % (AUTO) 89.6 % (40.0-70.0)
[2019-02-19 05:30] LABS: ALBUMIN 2.2 g/dL (3.4-5.0); BILIRUBIN,TOTAL 0.8 mg/dL (0.1-1.0); CALCIUM, TOTAL 9.2 mg/dL (8.8-10.5); CREATININE 3.8 mg/dL (0.60-1.30); MAGNESIUM 1.9 mg/dL (1.80-2.40); PHOSPHORUS 6.1 mg/dL (2.5-4.9); POTASSIUM 5.2 mmol/L (3.5-5.1); THYROID STIMULATING HORMONE 1.51 uIU/mL (0.36-3.74); TOTAL PROTEIN, SERUM 5.8 g/dL (6.4-8.2)
[2019-02-19] MEDS: VANCOMYCIN HCL 125 MG/2.5 ML SOLUTION ORAL.SYG PO SCH ×3 (06:00→12:00)
[2019-02-19 06:49] LABS: GLUCOSE,POINT OF CARE 93 MG/DL (70-110)
[2019-02-19 08:00] VITALS: BP 100/44
[2019-02-19] MEDS ORDERED: NOREPINEPHRINE BITARTRATE 8 MG in DEXTROSE 5%-WATER 242 ML IV PRN (08:01)
[2019-02-19] MEDS ORDERED: DOPamine HCL 800 MG/D5%-WATER 250 ML IV PRN (08:03)
[2019-02-19] MEDS: CARVEDILOL 12.5 MG TABLET PO SCH (09:00)
[2019-02-19] MEDS: MULTIVITAMINS WITH MINERALS, THERAPEUTIC TABLET PO SCH (09:00)
[2019-02-19] MEDS: FUROSEMIDE 40 MG/4 ML VIAL IVP SCH (09:00)
[2019-02-19] MEDS: CHOLECALCIFEROL (VIT D3) 1,000 UNITS TABLET PO SCH (09:00)
[2019-02-19] MEDS: NYSTATIN 500,000 UNITS/5 ML SUSPENSION UDCUP PO SCH ×2 (09:00→13:00)
[2019-02-19 09:16] LABS: ABG A-A DIFF O2 585.6 mmHg (10-20.0); ABG CARBOXYHEMOGLOBIN 0.3 % (0.0-1.5); ABG HCO3 16.4 mmol/L (22.0-26.0); ABG METHEMOGLOBIN 0.1 % (0.0-1.5); ABG OXYGEN CONTENT 17.5 mL/dL (15.0-23.0); ABG OXYGEN SATURATION 96.4 % (95.0-98.0); ABG PCO2 37 mmHg (35-45); ABG PH 7.259 (7.35-7.450); ABG TOTAL HEMOGLOBIN 12.9 G/dL (12.0-18.0); PO2, ARTERIAL BG 92.4 mmHg (75.0-83.0); SOURCE, BLOOD GAS ARTERIAL; TEMPERATURE, FAHRENHEIT, BG 97.3 FAHREN (96.0-98.6)
[2019-02-19] MEDS: PANTOPRAZOLE SODIUM 40 MG/VIAL IVP SCH (09:39)
[2019-02-19] MEDS: APIXABAN 2.5 MG TABLET PO SCH (09:40)
[2019-02-19] MEDS: LACTOBACILLUS ACIDOPHILUS/BULGARICUS TABLET PO SCH (09:40)
[2019-02-19] MEDS ORDERED: SODIUM CHLORIDE 0.9% 250 ML IV ONE (10:30)
[2019-02-19] MEDS ORDERED: HYPROMELLOSE 0.5% 15 ML OPHTHALMIC SOLUTION OU PRN (10:30)
[2019-02-19 11:29] LABS: ALBUMIN 2.2 g/dL (3.4-5.0); CALCIUM, TOTAL 9.2 mg/dL (8.8-10.5); CREATININE 3.7 mg/dL (0.60-1.30); MAGNESIUM 1.9 mg/dL (1.80-2.40); PHOSPHORUS 6.4 mg/dL (2.5-4.9); POTASSIUM 5.1 mmol/L (3.5-5.1); TOTAL PROTEIN, SERUM 5.6 g/dL (6.4-8.2)
[2019-02-19 12:00] VITALS: BP 97/44
[2019-02-19] MEDS ORDERED: HEPARIN SODIUM,PORCINE 5,000 UNITS/ML VIAL ONE (12:04)
[2019-02-19 12:19] LABS: GLUCOSE,POINT OF CARE 102 MG/DL (70-110)
[2019-02-19 12:21] LABS: O2 DEVICE,BLOOD GAS VENTILATOR (ROOM AIR); SITE, BLOOD GAS ARTERIAL LINE; VT, ABG 600 ml
[2019-02-19 12:24] LABS: PEEP,BG 15 cm H2O
[2019-02-19] MEDS ORDERED: EPINEPHrine 2 MG in DEXTROSE 5%-WATER 248 ML IV PRN (12:30)
[2019-02-19 12:45] VITALS: BP 95/41
[2019-02-19] MEDS ORDERED: VANCOMYCIN HCL 1 GM/D5% WATER 200 ML IV ONE (13:00)
[2019-02-19] MEDS ORDERED: *CLINICAL-RX DOSING [ENTER DRUG IN COMMENTS] CLINICAL ONE (13:00)
[2019-02-19] MEDS ORDERED: MEROPENEM 1 GM in SODIUM CHLORIDE 0.9% 100 ML IV ONE (13:00)
[2019-02-19] MEDS ORDERED: MetroNIDAZOLE 500 MG/NACL 100 ML IV SCH (13:00)
[2019-02-19] MEDS ORDERED: VECURONIUM BROMIDE 10 MG/VIAL IVP ONE (14:14)
[2019-02-19] MEDS ORDERED: NALOXONE HCL 1 MG/ML 2 ML SYG IVP ONE (14:14)
[2019-02-19] MEDS ORDERED: ETOMIDATE 2 MG/ML 10 ML VIAL IVP ONE (14:14)
[2019-02-19] MEDS ORDERED: EPINEPHrine 1:10,000 [1 MG/10 ML] SYRINGE IVP ONE ×2 (14:14)
[2019-02-19] MEDS ORDERED: VANCOMYCIN HCL 1 GM/D5% WATER 200 ML IV PRN (15:30)
== END 2019-02-19 14:15 | disposition expired | DRG 871 ==
LOC: 5N 14:40 → 5S 19:45 → ICU 02-16 16:45 → 5S 02-17 18:00 → ICU 02-18 18:35
PROVIDERS: ADMIT Internal Medicine Geriatric Medicine; ATTEND Internal Medicine Geriatric Medicine
PROC: 5A09357 Assistance with Respiratory Ventilation, Less than 24 Consecutive Hours, Continuous Positive Airway Pressure (ICD-10-PCS; 2019-02-12)
PROC: 5A09357 Assistance with Respiratory Ventilation, Less than 24 Consecutive Hours, Continuous Positive Airway Pressure (ICD-10-PCS; 2019-02-13)
PROC: 5A09357 Assistance with Respiratory Ventilation, Less than 24 Consecutive Hours, Continuous Positive Airway Pressure (ICD-10-PCS; 2019-02-14)
PROC: 5A09357 Assistance with Respiratory Ventilation, Less than 24 Consecutive Hours, Continuous Positive Airway Pressure (ICD-10-PCS; 2019-02-15)
PROC: 5A1D70Z Performance of Urinary Filtration, Intermittent, Less than 6 Hours Per Day (ICD-10-PCS; 2019-02-16)
PROC: 5A09357 Assistance with Respiratory Ventilation, Less than 24 Consecutive Hours, Continuous Positive Airway Pressure (ICD-10-PCS; 2019-02-16)
PROC: 0JH63XZ Insertion of Tunneled Vascular Access Device into Chest Subcutaneous Tissue and Fascia, Percutaneous Approach (ICD-10-PCS; 2019-02-16)
PROC: 02HV33Z Insertion of Infusion Device into Superior Vena Cava, Percutaneous Approach (ICD-10-PCS; 2019-02-16)
PROC: B5181ZA Fluoroscopy of Superior Vena Cava using Low Osmolar Contrast, Guidance (ICD-10-PCS; 2019-02-16)
PROC: B548ZZA Ultrasonography of Superior Vena Cava, Guidance (ICD-10-PCS; 2019-02-16)
PROC: 5A09357 Assistance with Respiratory Ventilation, Less than 24 Consecutive Hours, Continuous Positive Airway Pressure (ICD-10-PCS; 2019-02-17)
PROC: 05HM33Z Insertion of Infusion Device into Right Internal Jugular Vein, Percutaneous Approach (ICD-10-PCS; principal; 2019-02-18)
PROC: B543ZZA Ultrasonography of Right Jugular Veins, Guidance (ICD-10-PCS; 2019-02-18)
PROC: 04HL33Z Insertion of Infusion Device into Left Femoral Artery, Percutaneous Approach (ICD-10-PCS; 2019-02-18)
PROC: B44LZZ3 Ultrasonography of Femoral Artery, Intravascular (ICD-10-PCS; 2019-02-18)
PROC: 5A1D70Z Performance of Urinary Filtration, Intermittent, Less than 6 Hours Per Day (ICD-10-PCS; 2019-02-18)
PROC: 5A1935Z Respiratory Ventilation, Less than 24 Consecutive Hours (ICD-10-PCS; 2019-02-18)
PROC: 0BH17EZ Insertion of Endotracheal Airway into Trachea, Via Natural or Artificial Opening (ICD-10-PCS; 2019-02-18)
DX: A41.9 Sepsis, unspecified organism (principal); G93.41 Metabolic encephalopathy; R65.21 Severe sepsis with septic shock; N18.6 End stage renal disease; E43 Unspecified severe protein-calorie malnutrition; J18.9 Pneumonia, unspecified organism; J96.01 Acute respiratory failure with hypoxia; N17.9 Acute kidney failure, unspecified; I50.42 Chronic combined systolic (congestive) and diastolic (congestive) heart failure; I13.0 Hypertensive heart and chronic kidney disease with heart failure and stage 1 through stage 4 chronic kidney disease, or unspecified chronic kidney disease; A04.72 Enterocolitis due to Clostridium difficile, not specified as recurrent; N39.0 Urinary tract infection, site not specified; J44.0 Chronic obstructive pulmonary disease with (acute) lower respiratory infection; I13.2 Hypertensive heart and chronic kidney disease with heart failure and with stage 5 chronic kidney disease, or end stage renal disease; I42.9 Cardiomyopathy, unspecified; E87.5 Hyperkalemia; E11.22 Type 2 diabetes mellitus with diabetic chronic kidney disease; N40.0 Benign prostatic hyperplasia without lower urinary tract symptoms; G47.33 Obstructive sleep apnea (adult) (pediatric); E78.5 Hyperlipidemia, unspecified; D64.9 Anemia, unspecified; N18.3 Chronic kidney disease, stage 3 (moderate); J44.9 Chronic obstructive pulmonary disease, unspecified; B96.20 Unspecified Escherichia coli [E. coli] as the cause of diseases classified elsewhere; I46.9 Cardiac arrest, cause unspecified; Z66 Do not resuscitate; R13.10 Dysphagia, unspecified; D50.9 Iron deficiency anemia, unspecified; I25.10 Atherosclerotic heart disease of native coronary artery without angina pectoris; G89.29 Other chronic pain; M54.5 Low back pain; I48.91 Unspecified atrial fibrillation; N28.1 Cyst of kidney, acquired; C61 Malignant neoplasm of prostate; R62.7 Adult failure to thrive; Z79.01 Long term (current) use of anticoagulants; Z87.01 Personal history of pneumonia (recurrent); I25.2 Old myocardial infarction; Z79.4 Long term (current) use of insulin; Z95.810 Presence of automatic (implantable) cardiac defibrillator; Z88.0 Allergy status to penicillin; Z85.46 Personal history of malignant neoplasm of prostate; Z87.891 Personal history of nicotine dependence; Z99.2 Dependence on renal dialysis
CPT/HCPCS: 36245; 36561; 36600; 70470; 71250; 71275; 76000; 76937; 82565; 82805; 83036; 83605; 83735; 84100; 84439; 84443; 84520; 84550; 87040; 87070; 87081; 87205; 87340; 92507; 92610; 92950; 93005; 93306; 94002; 94003; 94640; 94660; 97163; 97167; 97168; 97530; 97535; C9113; G0378; J0171; J1265; J1644; J1815; J1940; J1956; J2185; J2250; J2270; J2310; J2370; J3010; J3370; J3480; J3490; J7030; J7040; J7050; J7060; P9041; P9046; P9047